=== PATIENT | female | born 1950 | race Caucasian/White ===

== ENCOUNTER 2022-03-25 10:33 | Observation (INO) ==
[2022-03-25 12:59] VITALS: BMI 25.8
[2022-03-25 13:19] LABS: BASOPHILS % (AUTO) 0.5 % (0.2-1.0); EOSINOPHILS % (AUTO) 0.6 % (0.9-2.9); HEMATOCRIT 42.7 % (36.0-47.0); HEMOGLOBIN 14.2 g/dL (12.0-16.0); LYMPHOCYTES # (AUTO) 1.2 X10^3/uL (1.3-2.9); MEAN CORPUSCULAR HEMOGLOBIN 29.1 pg (27.0-34.0); MEAN CORPUSCULAR HGB CONC 33.2 g/dL (33.0-35.0); MEAN CORPUSCULAR VOLUME 87.5 fL (80.0-100.0); MEAN PLATELET VOLUME 7.9 fL (7.4-11.0); MONOCYTES # (AUTO) 0.5 x10^3/uL (0.3-0.8); MONOCYTES % (AUTO) 7.9 % (0.0-13.0); NEUTROPHILS # (AUTO) 4.3 x10^3/uL (2.2-4.8); RED BLOOD COUNT 4.88 X10^6/uL (3.5-5.4); RED CELL DISTRIBUTION WIDTH 13.7 % (11.6-16.5); WHITE BLOOD COUNT 6.1 X10^3/uL (3.6-10.0)
[2022-03-25 13:27] LABS: BLOOD UREA NITROGEN 16 mg/dL (7-18); CALCIUM 9.8 mg/dL (8.5-10.1); CARBON DIOXIDE 27.5 mmol/L (21-32); CHLORIDE 107 mmol/L (98-107); CREATININE 0.77 mg/dL (0.55-1.02); SODIUM 145 mmol/L (136-145); eGFR NON BLACK RACES > 60 (>60)
--- NOTE | 2022-03-25 13:45 | DR.H&P ---
H&P History & Physical for Day of: H&P Date: 03/25/22 Chief Complaint Chief Complaint: Vomiting Allergies Allergies Allergy/AdvReac Type Severity Reaction Status Date / Time milk Allergy Mild Verified 03/25/22 13:00 History of Present Illness History of Present Illness: This is acute pleasant 71-year-old white female who presents to the office this morning complaining of acute onset of vomiting after eating steak and mashed potatoes yesterday at 3 PM. Feel like she has a piece of steak hung in a stricture in her esophagus. She reports an uncomfortable feeling in the mid to distal part of her esophagus at this time. She reports everything that she drinks or tries to eat afterwards. She denies coughing up blood or vomiting blood. She also denies nausea she immediately vomits up. She denies nausea, odynophagia and hematemesis. Her current problem has not gotten any better since his acute onset yesterday at 3 PM. I have called and discussed the Ms. Missy Loving with general surgeon, Dr. Lea. He plans on possible EGD later today. In the meantime I will check her labs and get her cleared for surgery and keep her n.p.o. at this time. Past Medical History Past Medical History: Dyslipidemia and GERD Past Surgical History Surgical History: Cholecystectomy Family History Family Medical History: Diabetes Mellitus, Cancer, [place], Coronary Artery Disease and Hypertension Social History Does patient currently use any type of tobacco product: No Have you used tobacco products in the last 12 months: No Type of Tobacco Use: None Does any household member use tobacco: No Alcohol Use: None Drug Use: None Medications Home Medications: milk Allergy (Mild, Verified 03/25/22 13:00) Labs Result Diagrams: 03/25/22 12:56 03/25/22 12:56 Labs: Laboratory WBC 6.1 X10^3/uL (3.6-10.0) 03/25/22 12:56 RBC 4.88 X10^6/uL (3.5-5.4) 03/25/22 12:56 Hgb 14.2 g/dL (12.0-16.0) 03/25/22 12:56 Hct 42.7 % (36.0-47.0) 03/25/22 12:56 MCV 87.5 fL (80.0-100.0) 03/25/22 12:56 MCH 29.1 pg (27.0-34.0) 03/25/22 12:56 MCHC 33.2 g/dL (33.0-35.0) 03/25/22 12:56 RDW 13.7 % (11.6-16.5) 03/25/22 12:56 Plt Count 244 X10^3/uL (150.0-450.0) 03/25/22 12:56 MPV 7.9 fL (7.4-11.0) 03/25/22 12:56 Neut % (Auto) 71.0 % (42.0-75.0) 03/25/22 12:56 Lymph % (Auto) 20.0 % (21.0-51.0) L 03/25/22 12:56 [place] % (Auto) 7.9 % (0.0-13.0) 03/25/22 12:56 Eos % (Auto) 0.6 % (0.9-2.9) L 03/25/22 12:56 Baso % (Auto) 0.5 % (0.2-1.0) 03/25/22 12:56 Neut # (Auto) 4.3 x10^3/uL (2.2-4.8) 03/25/22 12:56 Lymph # (Auto) 1.2 X10^3/uL (1.3-2.9) L 03/25/22 12:56 [place] # (Auto) 0.5 x10^3/uL (0.3-0.8) 03/25/22 12:56 Eos # (Auto) 0.0 x10^3/uL (0.0-0.2) 03/25/22 12:56 Baso # (Auto) 0.0 X10^3/uL (0.0-0.1) 03/25/22 12:56 Absolute Nucleated RBC 0.0 /100WBC 03/25/22 12:56 PT 13.7 SECONDS (11.8-14.3) 03/25/22 12:56 INR Target Range - 03/25/22 12:56 INR 1.08 (0.8-1.3) 03/25/22 12:56 Sodium 145 mmol/L (136-145) 03/25/22 12:56 Corrected Sodium TNP 03/25/22 12:56 Potassium 4.3 mmol/L (3.5-5.1) 03/25/22 12:56 Chloride 107 mmol/L (98-107) 03/25/22 12:56 Carbon Dioxide 27.5 mmol/L (21-32) 03/25/22 12:56 BUN 16 mg/dL (7-18) 03/25/22 12:56 Creatinine 0.77 mg/dL (0.55-1.02) 03/25/22 12:56 Est GFR (MDRD) Af Amer > 60 (>60) 03/25/22 12:56 Est GFR (MDRD) Non-Af > 60 (>60) 03/25/22 12:56 Glucose 96 mg/dL (65-99) 03/25/22 12:56 Calcium 9.8 mg/dL (8.5-10.1) 03/25/22 12:56 Review of Systems Constitutional: No Symptoms Reported Eyes: No Symptoms Reported ENT: No Symptoms Reported Respiratory: No Symptoms Reported Cardiovascular: No Symptoms Reported Gastrointestinal: Vomiting Genitourinary: No Symptoms Reported Musculoskeletal: No Symptoms Reported Skin: No Symptoms Reported Neurological: No Symptoms Reported Oriented: Normal, Time, Person and Place Eyes: Normal Ear: Normal Nose: Normal Throat: Normal Respiratory: Clear Throughout Cardiovascular: Normal : Normal Auscultation: Bowel Sounds: Normal Palpation: Normal Tenderness: Normal Skin: Normal Musculoskeletal: Normal Psychiatric: Normal Mood Description: Calm Affect: Normal Speech Pattern: Clear and Appropriate Assessment/Plan (1) Dysphagia: Qualifiers: Dysphagia type: esophageal phase Qualified Code(s): R13.19 - Other dysphagia Narrative Support Text: I suspect the patient has solid food occlusion of the esophagus most likely at a stricture. EGD later today per general surgery. Status: Acute Plan: The patient's CMP and CBC are back and within normal limits. I will go ahead and clear her for surgery since this is only an EGD. (2) GERD (gastroesophageal reflux disease): Status: Acute
[2022-03-25] MEDS ORDERED: DIPRIVAN VIAL 20 ML ONE (13:57)
[2022-03-25] MEDS ORDERED: NS 500 ML IV 500 ML IV ONE (13:59)
[2022-03-25] MEDS: NS 1/2 1,000 ML IV 1,000 ML IV SCH (14:31)
[2022-03-25] MEDS ORDERED: NS 1/2 1,000 ML IV 1,000 ML IV ONE ×2 (14:32→23:50)
--- NOTE | 2022-03-25 15:47 | RAD ---
HISTORYN/V/DIARRHEASTUDYCHEST, 1 VIEWCOMPARISONNone availableTECHNIQUEChest radiographic imaging, AP portable projection, 1 imageFINDINGSNo cardiomegaly.No focal airspace disease.No pleural effusion.No pneumothorax.No acute osseous abnormality.IMPRESSIONNo imaging findings of acute cardiopulmonary disease.Electronically signed by: Luis Slaazar (March 25, 2022 15:46:33)
[2022-03-25 21:15] LABS: ALANINE AMINOTRANSFERASE 29 Units/L (12-78); ALBUMIN 4.4 g/dL (3.4-5.0); ALKALINE PHOSPHATASE 91 Units/L (46-116); ASPARTATE AMINO TRANSFERASE 25 Units/L (15-37); TOTAL PROTEIN 7.9 g/dL (6.4-8.2)
[2022-03-26 02:29] LABS: BILIRUBIN,URINE NEGATIVE (NEGATIVE); BLOOD/HEMOGLOBIN,URINE 1+ (NEGATIVE); GLUCOSE, URINE NEGATIVE (NEGATIVE); KETONES,URINE NEGATIVE (NEGATIVE); LEUKOCYTE ESTERASE ,URINE 2+ (NEGATIVE); NITRITES,URINE POSITIVE (NEGATIVE); PROTEIN,URINE NEGATIVE (NEGATIVE); UROBILINOGEN,URINE NORMAL (NORMAL)
[2022-03-26 02:33] LABS: APPEARANCE,URINE CLEAR (CLEAR); BACTERIA,URINE 3+ /HPF (NEGATIVE); COLOR,URINE YELLOW (YELLOW); RBC,URINE 0-2 /HPF (0-3); SQUAMOUS EPITHELIAL CELL,UR FEW /HPF (NEGATIVE)
[2022-03-26] MEDS: NS 1/2 1,000 ML IV 1,000 ML IV SCH ×3 (05:44→09:04)
[2022-03-26 08:16] VITALS: BP 112/58
[2022-03-26] MEDS ORDERED: NS 1/2 1,000 ML IV 1,000 ML IV ONE (08:29)
[2022-03-26] MEDS ORDERED: PROTONIX INJ 40 MG VIAL IVP SCH (09:00)
== END 2022-03-26 11:00 | disposition home or self-care (01) ==
LOC: MED/SURG
PROVIDERS: ADMIT Family Medicine; ATTEND Family Medicine
DX: K21.9 Gastro-esophageal reflux disease without esophagitis; E78.2 Mixed hyperlipidemia; K22.2 Esophageal obstruction; R11.10 Vomiting, unspecified; R13.11 Dysphagia, oral phase

== ENCOUNTER 2022-10-20 08:20 | Inpatient (IN) ==
[2022-10-20] MEDS ORDERED: LR 1,000 ML IV 1,000 ML IV ONE ×2 (09:38→11:19)
[2022-10-20] MEDS ORDERED: ANCEF VIAL 1 GRAM ONE (09:38)
[2022-10-20] MEDS ORDERED: NS 100 ML IV 100 ML ONE (09:39)
[2022-10-20] MEDS ORDERED: BACTROBAN TOPICAL OINT ONE (10:03)
[2022-10-20] MEDS ORDERED: POLYMYXIN B SULFATE ONE (10:04)
[2022-10-20] MEDS ORDERED: QUELICIN (OR ANECTINE) ONE (10:08)
[2022-10-20] MEDS ORDERED: ZOFRAN INJ 4 MG VIAL ONE ×2 (10:08→21:31)
[2022-10-20] MEDS ORDERED: DIPRIVAN VIAL 20 ML ONE (10:08)
[2022-10-20] MEDS ORDERED: NEO-SYNEPHRINE INJ ONE (10:08)
[2022-10-20] MEDS ORDERED: PEPCID 20 MG VIAL ONE (10:08)
[2022-10-20] MEDS ORDERED: MAGNESIUM SULFATE 50% INJ VIAL ONE (10:08)
[2022-10-20] MEDS ORDERED: DILAUDID INJ ONE (10:11)
[2022-10-20] MEDS ORDERED: PRECEDEX INJ VIAL IVP ONE (10:15)
[2022-10-20] MEDS ORDERED: KETAMINE HCL ONE (10:15)
[2022-10-20] MEDS ORDERED: ZEMURON 50 MG VIAL ONE (10:15)
[2022-10-20] MEDS ORDERED: SUPRANE ONE (10:15)
[2022-10-20 10:18] VITALS: BMI 25.3
[2022-10-20] MEDS ORDERED: LEVAQUIN PREMIX IV 500 MG 500 MG/100 ML BAG IV ONE (10:40)
[2022-10-20] MEDS ORDERED: BRIDION ONE (11:50)
[2022-10-20] MEDS ORDERED: REGLAN INJ 10 MG VIAL IVP PRN (12:23)
[2022-10-20] MEDS ORDERED: ZOFRAN INJ 4 MG VIAL IVP PRN (12:23)
[2022-10-20] MEDS ORDERED: BENADRYL INJ 50 MG VIAL IVP PRN (12:23)
[2022-10-20] MEDS ORDERED: BARHEMSYS INJ IVP PRN (12:23)
[2022-10-20] MEDS: DILAUDID INJ IVP PRN ×3 (12:30→12:44)
[2022-10-20] MEDS: D5 1/2 NS 1,000 ML 1,000 ML IV SCH ×2 (14:00→21:19)
[2022-10-20] MEDS: ANCEF VIAL 1 GRAM IVP SCH ×2 (14:00→21:12)
[2022-10-20] MEDS ORDERED: NS IRRIGATION* 500 ML IR ONE (15:16)
[2022-10-20] MEDS: ZOFRAN INJ 4 MG VIAL IVP PRN (21:36)
[2022-10-21] MEDS: DILAUDID INJ IVP PRN ×2 (00:01→17:28)
[2022-10-21] MEDS ORDERED: REGLAN INJ 10 MG VIAL IVP ONE (00:12)
[2022-10-21] MEDS ORDERED: REGLAN INJ 10 MG VIAL ONE (00:13)
[2022-10-21] MEDS: ANCEF VIAL 1 GRAM IVP SCH ×2 (05:02→14:37)
[2022-10-21] MEDS: D5 1/2 NS 1,000 ML 1,000 ML IV SCH ×3 (05:02→20:35)
[2022-10-21] MEDS: ZOFRAN INJ 4 MG VIAL IVP PRN ×2 (05:07→17:25)
[2022-10-21 05:11] LABS: BASOPHILS % (AUTO) 0.2 % (0.2-1.0); HEMATOCRIT 35.2 % (36.0-47.0); LYMPHOCYTES # (AUTO) 0.7 X10^3/uL (1.3-2.9); LYMPHOCYTES % (AUTO) 7.3 % (21.0-51.0); MEAN CORPUSCULAR HEMOGLOBIN 29.2 pg (27.0-34.0); MEAN PLATELET VOLUME 7.6 fL (7.4-11.0); MONOCYTES # (AUTO) 0.6 x10^3/uL (0.3-0.8); MONOCYTES % (AUTO) 6.4 % (0.0-13.0); NEUTROPHILS # (AUTO) 8.7 x10^3/uL (2.2-4.8); NEUTROPHILS % (AUTO) 86.1 % (42.0-75.0); RED BLOOD COUNT 4.09 X10^6/uL (3.5-5.4); RED CELL DISTRIBUTION WIDTH 13.7 % (11.6-16.5); WHITE BLOOD COUNT 10.1 X10^3/uL (3.6-10.0)
[2022-10-21 05:26] LABS: ALANINE AMINOTRANSFERASE 26 Units/L (12-78); ALBUMIN 3.1 g/dL (3.4-5.0); ALKALINE PHOSPHATASE 78 Units/L (46-116); ASPARTATE AMINO TRANSFERASE 24 Units/L (15-37); BLOOD UREA NITROGEN 8 mg/dL (7-18); CALCIUM 8.3 mg/dL (8.5-10.1); CARBON DIOXIDE 29.6 mmol/L (21-32); CHLORIDE 102 mmol/L (98-107); COR NA(FOR HYPERGLY) 136 mmol/L (136-145); CREATININE 0.69 mg/dL (0.55-1.02); SODIUM 135 mmol/L (136-145); TOTAL PROTEIN 6.1 g/dL (6.4-8.2); eGFR NON BLACK RACES > 60 (>60)
[2022-10-21] MEDS ORDERED: PROTONIX INJ 40 MG VIAL IVP SCH (09:00)
[2022-10-21] MEDS: LOVENOX INJ 40 MG SYR SC SCH (09:44)
--- NOTE | 2022-10-21 10:17 | DR.PROGNOT ---
Hospital Progress Notes - Progress Note for Day of: Progress Note Date: 10/21/22 - Chief Complaint Chief Complaint: PO day 1. c/o incisional pain .. mild drainage in HERBER . afebrile .. stable VS . - Past Medical Family Social History Past Med/Fam/Surg Hx: No changes since H&P Allergies: Allergies milk Allergy (Mild, Verified 04/25/22 07:32) unknown pantoprazole [From Protonix] Adverse Reaction (Mild, Verified 04/25/22 07:32) head itching, rash on back of neck - Review Of Systems ROS: No change since H&P - Vital Signs Vital Signs: Temperature 98.0 F Pulse Rate [Bilateral Radial] 79 Pulse Rate 75 Respiratory Rate 20 Blood Pressure [Left Arm] 111/59 Blood Pressure 129/61 O2 Sat by Pulse Oximetry 97 - Physical Exam Oriented: Normal Eyes: Normal Ear: Normal Respiratory: Normal Cardiovascular: Normal : Normal GI:Auscultation: Decreased GI: Tenderness: Diffuse (soft aqbdomen .. BS hypoactive .) Mood Description: Calm Speech Pattern: Clear, Appropriate - Laboratory and Diagnostics Result Diagrams: 10/21/22 04:50 10/21/22 04:50 Labs: Laboratory WBC 10.1 X10^3/uL (3.6-10.0) H 10/21/22 04:50 RBC 4.09 X10^6/uL (3.5-5.4) 10/21/22 04:50 Hgb 12.0 g/dL (12.0-16.0) 10/21/22 04:50 Hct 35.2 % (36.0-47.0) L 10/21/22 04:50 MCV 86.0 fL (80.0-100.0) 10/21/22 04:50 MCH 29.2 pg (27.0-34.0) 10/21/22 04:50 MCHC 34.0 g/dL (33.0-35.0) 10/21/22 04:50 RDW 13.7 % (11.6-16.5) 10/21/22 04:50 Plt Count 216 X10^3/uL (150.0-450.0) 10/21/22 04:50 MPV 7.6 fL (7.4-11.0) 10/21/22 04:50 Neut % (Auto) 86.1 % (42.0-75.0) H 10/21/22 04:50 Lymph % (Auto) 7.3 % (21.0-51.0) L 10/21/22 04:50 Jenkins % (Auto) 6.4 % (0.0-13.0) 10/21/22 04:50 Eos % (Auto) 0.0 % (0.9-2.9) L 10/21/22 04:50 Baso % (Auto) 0.2 % (0.2-1.0) 10/21/22 04:50 Neut # (Auto) 8.7 x10^3/uL (2.2-4.8) H 10/21/22 04:50 Lymph # (Auto) 0.7 X10^3/uL (1.3-2.9) L 10/21/22 04:50 Jenkins # (Auto) 0.6 x10^3/uL (0.3-0.8) 10/21/22 04:50 Eos # (Auto) 0.0 x10^3/uL (0.0-0.2) 10/21/22 04:50 Baso # (Auto) 0.0 X10^3/uL (0.0-0.1) 10/21/22 04:50 Absolute Nucleated RBC 0.0 /100WBC 10/21/22 04:50 Sodium 135 mmol/L (136-145) L 10/21/22 04:50 Corrected Sodium 136 mmol/L (136-145) 10/21/22 04:50 Potassium 4.8 mmol/L (3.5-5.1) 10/21/22 04:50 Chloride 102 mmol/L (98-107) 10/21/22 04:50 Carbon Dioxide 29.6 mmol/L (21-32) 10/21/22 04:50 BUN 8 mg/dL (7-18) 10/21/22 04:50 Creatinine 0.69 mg/dL (0.55-1.02) 10/21/22 04:50 Est GFR (MDRD) Af Amer > 60 (>60) 10/21/22 04:50 Est GFR (MDRD) Non-Af > 60 (>60) 10/21/22 04:50 Glucose 162 mg/dL (65-99) H 10/21/22 04:50 Calcium 8.3 mg/dL (8.5-10.1) L 10/21/22 04:50 Corrected Calcium 9.0 mg/dL (8.5-10.1) 10/21/22 04:50 Total Bilirubin 0.60 mg/dL (0.2-1.0) 10/21/22 04:50 AST 24 Units/L (15-37) 10/21/22 04:50 ALT 26 Units/L (12-78) 10/21/22 04:50 Alkaline Phosphatase 78 Units/L (46-116) 10/21/22 04:50 Total Protein 6.1 g/dL (6.4-8.2) L 10/21/22 04:50 Albumin 3.1 g/dL (3.4-5.0) L 10/21/22 04:50 Globulin 3.0 g/dL (2.5-4.5) 10/21/22 04:50 Albumin/Globulin Ratio 1.0 Ratio (1.1-2.1) L 10/21/22 04:50 Tissue Pathology To follow 10/20/22 11:12 - Assessment and Plan 3: s/p Rt colectomy day 1 . to d/c NGT , OOB with Marissa vivar/Gurinder aceves . may have water .. same PO care ..
--- NOTE | 2022-10-21 14:30 | DR.CONSULT ---
CONSULT Consultation for Day of: Date: 10/21/22 Chief Complaint Chief Complaint: Medical management Allergies Allergies Allergy/AdvReac Type Severity Reaction Status Date / Time milk Allergy Mild unknown Verified 04/25/22 07:32 pantoprazole [From Protonix] AdvReac Mild head Verified 04/25/22 07:32 itching, rash on back of neck History of Present Illness History of Present Illness: This is a pleasant 72-year-old white female well- known to me. She has a history of colon cancer with recent diagnosis, hypertension and diabetes mellitus type 2. She underwent went a colon resection yesterday per general surgery and they have consulted me for medical management of her chronic medical problems. Currently she is doing well has no new compl aints other than some pain which she reports is better this morning compared to last night. Past Medical History Past Medical History: Dyslipidemia and GERD Past Surgical History Surgical History: Cholecystectomy Family History Family Medical History: Diabetes Mellitus, Cancer and Hypertension Social History Alcohol Use: None Drug Use: None Medications Home Medications: milk Allergy (Mild, Verified 04/25/22 07:32) unknown pantoprazole [From Protonix] Adverse Reaction (Mild, Verified 04/25/22 07:32) head itching, rash on back of neck CONTINUE taking the following medications losartan 25 mg tablet 1 tab PO QDAY 10/20/22 [History] rabeprazole 20 mg tablet,delayed release 1 tab PO QDAY 10/20/22 [History] Review of Systems Constitutional: No Symptoms Reported Eyes: No Symptoms Reported ENT: No Symptoms Reported Respiratory: No Symptoms Reported Cardiovascular: No Symptoms Reported Gastrointestinal: Abdominal Pain Genitourinary: No Symptoms Reported Musculoskeletal: No Symptoms Reported Skin: No Symptoms Reported Neurological: No Symptoms Reported Physical Exam Vital Signs: Temperature 98.9 F Pulse Rate [Bilateral Radial] 76 Pulse Rate 75 Respiratory Rate 20 Blood Pressure [Left Arm] 126/60 Blood Pressure 129/61 O2 Sat by Pulse Oximetry 96 Oriented: Normal, Time, Person and Place Eyes: Normal Ear: Normal Nose: Normal Throat: Normal Respiratory: Clear Throughout Cardiovascular: Normal Auscultation: Bowel Sounds: Absent Tenderness: Diffuse Skin: Normal Musculoskeletal: Normal Psychiatric: Normal Mood Description: Calm Affect: Normal Speech Pattern: Clear and Appropriate Plan (1) Diabetes mellitus type 2 in nonobese: Status: Acute Plan: Covered patient with sliding scale regular insulin per protocol. (2) Hypertension: Status: Acute Plan: Monitor blood pressure and I will treat accordingly with IV anti hypertensives as long as she is NPO. (3) Colon cancer: Status: Acute Narrative Support Text: Patient is postop day 1 for colon resection secondary to colon carcinoma. Plan: Treatment per general surgery.
[2022-10-21] MEDS: PEPCID 20 MG VIAL 20 MG in NS 50 ML IV 50 ML IV SCH ×2 (16:38→20:36)
[2022-10-21] MEDS ORDERED: TYLENOL 500 MG TAB EXTRA STRENGTH PO PRN (16:57)
[2022-10-21] MEDS ORDERED: TYLENOL 325 MG TAB PO PRN (17:06)
[2022-10-22] MEDS: D5 1/2 NS 1,000 ML 1,000 ML IV SCH ×3 (04:50→19:56)
[2022-10-22 05:15] LABS: BASOPHILS % (AUTO) 0.3 % (0.2-1.0); EOSINOPHILS % (AUTO) 0.3 % (0.9-2.9); HEMATOCRIT 33.7 % (36.0-47.0); HEMOGLOBIN 11.5 g/dL (12.0-16.0); LYMPHOCYTES # (AUTO) 0.8 X10^3/uL (1.3-2.9); LYMPHOCYTES % (AUTO) 10.2 % (21.0-51.0); MEAN CORPUSCULAR HEMOGLOBIN 29.5 pg (27.0-34.0); MEAN CORPUSCULAR HGB CONC 34.3 g/dL (33.0-35.0); MEAN CORPUSCULAR VOLUME 86.1 fL (80.0-100.0); MEAN PLATELET VOLUME 7.5 fL (7.4-11.0); MONOCYTES # (AUTO) 0.6 x10^3/uL (0.3-0.8); MONOCYTES % (AUTO) 8.2 % (0.0-13.0); NEUTROPHILS # (AUTO) 6.1 x10^3/uL (2.2-4.8); RED BLOOD COUNT 3.91 X10^6/uL (3.5-5.4); RED CELL DISTRIBUTION WIDTH 13.7 % (11.6-16.5); WHITE BLOOD COUNT 7.5 X10^3/uL (3.6-10.0)
[2022-10-22 05:23] LABS: ALANINE AMINOTRANSFERASE 20 Units/L (12-78); ALBUMIN 2.8 g/dL (3.4-5.0); ALKALINE PHOSPHATASE 71 Units/L (46-116); ASPARTATE AMINO TRANSFERASE 23 Units/L (15-37); BLOOD UREA NITROGEN 5 mg/dL (7-18); CALCIUM 8.1 mg/dL (8.5-10.1); CARBON DIOXIDE 27.6 mmol/L (21-32); CHLORIDE 103 mmol/L (98-107); COR CA(FOR HYPOALB) 9.1 mg/dL (8.5-10.1); CREATININE 0.75 mg/dL (0.55-1.02); SODIUM 137 mmol/L (136-145); TOTAL PROTEIN 5.7 g/dL (6.4-8.2); eGFR NON BLACK RACES > 60 (>60)
[2022-10-22] MEDS: PEPCID 20 MG VIAL 20 MG in NS 50 ML IV 50 ML IV SCH ×2 (09:15→20:21)
[2022-10-22] MEDS: LOVENOX INJ 40 MG SYR SC SCH (09:15)
--- NOTE | 2022-10-22 16:05 | PCM.PROG ---
Progress Note Progress Note for Day of Date of Exam: 10/22/22 Subjective Subjective: Patient reports he is feeling better this morning. She is not taking anything by mouth at this time her abdominal pain is improved overall though. She is not passing any when or having any bowel movements at this time either. Past Medical Family Social History Past Med/Fam/Surg Hx: No changes since H&P Allergies: Allergies milk Allergy (Mild, Verified 04/25/22 07:32) unknown pantoprazole [From Protonix] Adverse Reaction (Mild, Verified 04/25/22 07:32) head itching, rash on back of neck Review of Systems ROS: No change since H&P Vital Signs and I&O's Vital Signs: Temperature 99.3 F Pulse Rate [Bilateral Radial] 89 Pulse Rate 75 Respiratory Rate 20 Blood Pressure [Left Arm] 146/68 Blood Pressure 129/61 O2 Sat by Pulse Oximetry 93 Intake and Output: Intake & Output 10/20/22 10/21/22 10/22/22 10/23/22 11:59 11:59 11:59 11:59 Intake Total 2200 / 2200 2050 / 2050 3395 / 3395 Output Total 1250 / 1250 1120 / 1120 655 / 655 Balance 950 / 950 930 / 930 2740 / 2740 Physical Exam Oriented: Normal, Time, Person and Place Eyes: Normal Ear: Normal Nose: Normal Throat: Normal Respiratory: Normal Cardiovascular: Normal : Normal Auscultation: Bowel Sounds: Absent Tenderness: Diffuse Skin: Normal Musculoskeletal: Normal Psychiatric: Normal Mood Description: Calm Affect: Normal Speech Pattern: Clear and Appropriate Laboratory and Diagnostics Result Diagrams: 10/22/22 04:54 10/22/22 04:54 Labs: Laboratory WBC 7.5 X10^3/uL (3.6-10.0) 10/22/22 04:54 RBC 3.91 X10^6/uL (3.5-5.4) 10/22/22 04:54 Hgb 11.5 g/dL (12.0-16.0) L 10/22/22 04:54 Hct 33.7 % (36.0-47.0) L 10/22/22 04:54 MCV 86.1 fL (80.0-100.0) 10/22/22 04:54 MCH 29.5 pg (27.0-34.0) 10/22/22 04:54 MCHC 34.3 g/dL (33.0-35.0) 10/22/22 04:54 RDW 13.7 % (11.6-16.5) 10/22/22 04:54 Plt Count 198 X10^3/uL (150.0-450.0) 10/22/22 04:54 MPV 7.5 fL (7.4-11.0) 10/22/22 04:54 Neut % (Auto) 81.0 % (42.0-75.0) H 10/22/22 04:54 Lymph % (Auto) 10.2 % (21.0-51.0) L 10/22/22 04:54 [place] % (Auto) 8.2 % (0.0-13.0) 10/22/22 04:54 Eos % (Auto) 0.3 % (0.9-2.9) L 10/22/22 04:54 Baso % (Auto) 0.3 % (0.2-1.0) 10/22/22 04:54 Neut # (Auto) 6.1 x10^3/uL (2.2-4.8) H 10/22/22 04:54 Lymph # (Auto) 0.8 X10^3/uL (1.3-2.9) L 10/22/22 04:54 [place] # (Auto) 0.6 x10^3/uL (0.3-0.8) 10/22/22 04:54 Eos # (Auto) 0.0 x10^3/uL (0.0-0.2) 10/22/22 04:54 Baso # (Auto) 0.0 X10^3/uL (0.0-0.1) 10/22/22 04:54 Absolute Nucleated RBC 0.0 /100WBC 10/22/22 04:54 Sodium 137 mmol/L (136-145) 10/22/22 04:54 Corrected Sodium TNP 10/22/22 04:54 Potassium 3.6 mmol/L (3.5-5.1) 10/22/22 04:54 Chloride 103 mmol/L (98-107) 10/22/22 04:54 Carbon Dioxide 27.6 mmol/L (21-32) 10/22/22 04:54 BUN 5 mg/dL (7-18) L 10/22/22 04:54 Creatinine 0.75 mg/dL (0.55-1.02) 10/22/22 04:54 Est GFR (MDRD) Af Amer > 60 (>60) 10/22/22 04:54 Est GFR (MDRD) Non-Af > 60 (>60) 10/22/22 04:54 Glucose 110 mg/dL (65-99) H 10/22/22 04:54 Calcium 8.1 mg/dL (8.5-10.1) L 10/22/22 04:54 Corrected Calcium 9.1 mg/dL (8.5-10.1) 10/22/22 04:54 Total Bilirubin 0.90 mg/dL (0.2-1.0) 10/22/22 04:54 AST 23 Units/L (15-37) 10/22/22 04:54 ALT 20 Units/L (12-78) 10/22/22 04:54 Alkaline Phosphatase 71 Units/L (46-116) 10/22/22 04:54 Total Protein 5.7 g/dL (6.4-8.2) L 10/22/22 04:54 Albumin 2.8 g/dL (3.4-5.0) L 10/22/22 04:54 Globulin 2.9 g/dL (2.5-4.5) 10/22/22 04:54 Albumin/Globulin Ratio 1.0 Ratio (1.1-2.1) L 10/22/22 04:54 Tissue Pathology To follow 10/20/22 11:12 Plan (1) Diabetes mellitus type 2 in nonobese: Status: Acute Plan: Slight scale regular insulin per protocol. (2) Hypertension: Status: Acute Plan: We will give intravenous antihypertensive if needed for uncontrolled hypertension. (3) Colon cancer: Status: Acute Plan: Follow-up pathology results.
[2022-10-23] MEDS: D5 1/2 NS 1,000 ML 1,000 ML IV SCH ×2 (05:10→08:26)
[2022-10-23 05:20] LABS: BASOPHILS % (AUTO) 0.4 % (0.2-1.0); EOSINOPHILS # (AUTO) 0.1 x10^3/uL (0.0-0.2); EOSINOPHILS % (AUTO) 1.8 % (0.9-2.9); HEMATOCRIT 32.1 % (36.0-47.0); HEMOGLOBIN 11.1 g/dL (12.0-16.0); LYMPHOCYTES % (AUTO) 15.9 % (21.0-51.0); MEAN CORPUSCULAR HEMOGLOBIN 29.4 pg (27.0-34.0); MEAN CORPUSCULAR HGB CONC 34.5 g/dL (33.0-35.0); MEAN CORPUSCULAR VOLUME 85.3 fL (80.0-100.0); MEAN PLATELET VOLUME 7.8 fL (7.4-11.0); MONOCYTES # (AUTO) 0.6 x10^3/uL (0.3-0.8); MONOCYTES % (AUTO) 9.5 % (0.0-13.0); NEUTROPHILS # (AUTO) 4.7 x10^3/uL (2.2-4.8); NEUTROPHILS % (AUTO) 72.4 % (42.0-75.0); RED BLOOD COUNT 3.76 X10^6/uL (3.5-5.4); RED CELL DISTRIBUTION WIDTH 13.8 % (11.6-16.5); WHITE BLOOD COUNT 6.4 X10^3/uL (3.6-10.0)
[2022-10-23 05:32] LABS: ALANINE AMINOTRANSFERASE 17 Units/L (12-78); ALBUMIN 2.6 g/dL (3.4-5.0); ALKALINE PHOSPHATASE 69 Units/L (46-116); ASPARTATE AMINO TRANSFERASE 21 Units/L (15-37); BLOOD UREA NITROGEN 5 mg/dL (7-18); CALCIUM 8.4 mg/dL (8.5-10.1); CARBON DIOXIDE 32.7 mmol/L (21-32); CHLORIDE 105 mmol/L (98-107); COR CA(FOR HYPOALB) 9.5 mg/dL (8.5-10.1); CREATININE 0.64 mg/dL (0.55-1.02); SODIUM 139 mmol/L (136-145); TOTAL PROTEIN 5.7 g/dL (6.4-8.2); eGFR NON BLACK RACES > 60 (>60)
--- NOTE | 2022-10-23 08:19 | PCM.PROG ---
Progress Note Progress Note for Day of Date of Exam: 10/23/22 Subjective Subjective: Patient reports she is feeling better this morning, she is on postop day 3. It is reported by the charge nurse that she developed bowel sounds last night. She has been started on a clear liquid diet as tolerated and finding this time. She has not passed any flatus nor had a bowel movement but she reports that her belly has been gurgling. She has no pain in her abdomen at this time. Blood pressure and heart rate have remained stable as well as her glucose level. Hemoglobin stable at 11.1. Will resume her losartan this morning. Past Medical Family Social History Past Med/Fam/Surg Hx: No changes since H&P Allergies: Allergies milk Allergy (Mild, Verified 04/25/22 07:32) unknown pantoprazole [From Protonix] Adverse Reaction (Mild, Verified 04/25/22 07:32) head itching, rash on back of neck Review of Systems ROS: No change since H&P Vital Signs and I&O's Vital Signs: Temperature 98.5 F Pulse Rate [Bilateral Radial] 78 Pulse Rate 75 Respiratory Rate 20 Blood Pressure [Left Arm] 133/65 Blood Pressure 129/61 O2 Sat by Pulse Oximetry 93 Intake and Output: Intake & Output 10/20/22 10/21/22 10/22/22 10/23/22 11:59 11:59 11:59 11:59 Intake Total 2200 / 2200 2050 / 2050 3395 / 3395 2166 / 2166 Output Total 1250 / 1250 1120 / 1120 655 / 655 65 / 65 Balance 950 / 950 930 / 930 2740 / 2740 2101 / 2101 Physical Exam Oriented: Normal, Time, Person and Place Eyes: Normal Ear: Normal Nose: Normal Throat: Normal Respiratory: Normal Cardiovascular: Normal : Normal Auscultation: Bowel Sounds: Absent Tenderness: Diffuse Skin: Normal Musculoskeletal: Normal Psychiatric: Normal Mood Description: Calm Affect: Normal Speech Pattern: Clear and Appropriate Laboratory and Diagnostics Result Diagrams: 10/23/22 04:33 10/23/22 04:33 Labs: Laboratory WBC 6.4 X10^3/uL (3.6-10.0) 10/23/22 04:33 RBC 3.76 X10^6/uL (3.5-5.4) 10/23/22 04:33 Hgb 11.1 g/dL (12.0-16.0) L 10/23/22 04:33 Hct 32.1 % (36.0-47.0) L 10/23/22 04:33 MCV 85.3 fL (80.0-100.0) 10/23/22 04:33 MCH 29.4 pg (27.0-34.0) 10/23/22 04:33 MCHC 34.5 g/dL (33.0-35.0) 10/23/22 04:33 RDW 13.8 % (11.6-16.5) 10/23/22 04:33 Plt Count 197 X10^3/uL (150.0-450.0) 10/23/22 04:33 MPV 7.8 fL (7.4-11.0) 10/23/22 04:33 Neut % (Auto) 72.4 % (42.0-75.0) 10/23/22 04:33 Lymph % (Auto) 15.9 % (21.0-51.0) L 10/23/22 04:33 Bartholomew % (Auto) 9.5 % (0.0-13.0) 10/23/22 04:33 Eos % (Auto) 1.8 % (0.9-2.9) 10/23/22 04:33 Baso % (Auto) 0.4 % (0.2-1.0) 10/23/22 04:33 Neut # (Auto) 4.7 x10^3/uL (2.2-4.8) 10/23/22 04:33 Lymph # (Auto) 1.0 X10^3/uL (1.3-2.9) L 10/23/22 04:33 Bartholomew # (Auto) 0.6 x10^3/uL (0.3-0.8) 10/23/22 04:33 Eos # (Auto) 0.1 x10^3/uL (0.0-0.2) 10/23/22 04:33 Baso # (Auto) 0.0 X10^3/uL (0.0-0.1) 10/23/22 04:33 Absolute Nucleated RBC 0.0 /100WBC 10/23/22 04:33 Sodium 139 mmol/L (136-145) 10/23/22 04:33 Corrected Sodium TNP 10/23/22 04:33 Potassium 4.1 mmol/L (3.5-5.1) 10/23/22 04:33 Chloride 105 mmol/L (98-107) 10/23/22 04:33 Carbon Dioxide 32.7 mmol/L (21-32) H 10/23/22 04:33 BUN 5 mg/dL (7-18) L 10/23/22 04:33 Creatinine 0.64 mg/dL (0.55-1.02) 10/23/22 04:33 Est GFR (MDRD) Af Amer > 60 (>60) 10/23/22 04:33 Est GFR (MDRD) Non-Af > 60 (>60) 10/23/22 04:33 Glucose 109 mg/dL (65-99) H 10/23/22 04:33 Calcium 8.4 mg/dL (8.5-10.1) L 10/23/22 04:33 Corrected Calcium 9.5 mg/dL (8.5-10.1) 10/23/22 04:33 Total Bilirubin 1.20 mg/dL (0.2-1.0) H 10/23/22 04:33 AST 21 Units/L (15-37) 10/23/22 04:33 ALT 17 Units/L (12-78) 10/23/22 04:33 Alkaline Phosphatase 69 Units/L (46-116) 10/23/22 04:33 Total Protein 5.7 g/dL (6.4-8.2) L 10/23/22 04:33 Albumin 2.6 g/dL (3.4-5.0) L 10/23/22 04:33 Globulin 3.1 g/dL (2.5-4.5) 10/23/22 04:33 Albumin/Globulin Ratio 0.8 Ratio (1.1-2.1) L 10/23/22 04:33 Tissue Pathology To follow 10/20/22 11:12 Plan (1) Diabetes mellitus type 2 in nonobese: Status: Acute Plan: Slight scale regular insulin per protocol. (2) Hypertension: Status: Acute Plan: We will give intravenous antihypertensive if needed for uncontrolled hypertension. (3) Colon cancer: Status: Acute Plan: Follow-up pathology results.
[2022-10-23 08:26] VITALS: BP 152/70
[2022-10-23] MEDS: PEPCID 20 MG VIAL 20 MG in NS 50 ML IV 50 ML IV SCH (08:34)
[2022-10-23] MEDS: LOVENOX INJ 40 MG SYR SC SCH (08:40)
[2022-10-23] MEDS ORDERED: COZAAR PO SCH (09:00)
== END 2022-10-23 10:40 | disposition home or self-care (01) | DRG 331 ==
LOC: MED/SURG 08:20
PROVIDERS: ADMIT Surgery; ATTEND Surgery
DX: K66.0 Peritoneal adhesions (postprocedural) (postinfection); K21.9 Gastro-esophageal reflux disease without esophagitis; E11.65 Type 2 diabetes mellitus with hyperglycemia; E78.2 Mixed hyperlipidemia; I10 Essential (primary) hypertension; C18.2 Malignant neoplasm of ascending colon

== ENCOUNTER 2024-02-19 10:22 | Observation (INO) ==
[2024-02-19] MEDS: NOZIN NASAL SANITIZER TP ONE (10:50)
--- NOTE | 2024-02-19 11:03 | RAD ---
EXAM: CHEST, 1 VIEW HISTORY: PRE OP SHOULDER; COMPARISON: Prior study or studies were utilized for comparison during interpretation with the most relevant michelle ed 03/25/2022 TECHNIQUE: CHEST, 1 VIEW FINDINGS: Chest: Lines and tubes: None Mediastinum: Cardiac and mediastinal shadow is within normal limits for size and contour. Pulmonary vessels: No pulmonary vascular congestion. Lung bhatia: No suspicious airspace opacity. Pleura: No effusion. No pneumothorax. Bones and soft tissues: There is a right proximal humerus fracture. The humeral head projects below the glenoid which can be seen with dislocation. IMPRESSION: 1. Possible right shoulder fracture dislocation 2. No acute cardiopulmonary abnormality THIS IS AN ELECTRONICALLY VERIFIED FINAL REPORT 02/19/2024 10:59 AM - Electronically signed by Jerrod Biggs MD
[2024-02-19 11:22] VITALS: BMI 22.6
[2024-02-19] MEDS: LR 1,000 ML IV 1,000 ML IV ONE ×2 (11:30→15:18)
[2024-02-19] MEDS: VANCOMYCIN IV *PREMIX 1 G/200 ML BAG 1 G/200 ML PIGGYBACK IV ONE (11:35)
[2024-02-19] MEDS: FENTANYL VIAL INJ 250 mcg ONE (11:48)
[2024-02-19] MEDS: NAROPIN 0.75% EPI ONE (11:48)
[2024-02-19] MEDS: VANCOMYCIN HCL ONE (12:11)
[2024-02-19] MEDS: MARCAINE/EPINEPHRINE ONE (12:11)
[2024-02-19] MEDS: BETADINE SOLN ONE (12:13)
[2024-02-19] MEDS ORDERED: TRANEXAMIC ACID 1,000 MG in NS 100 ML IV 100 ML IV SCH (12:15)
[2024-02-19] MEDS: TRANEXAMIC ACID IV ONE (12:30)
[2024-02-19] MEDS: NS 100 ML IV 100 ML ONE ×2 (12:30→12:45)
[2024-02-19] MEDS: ROCEPHIN VIAL 2 GRAMS ONE (12:45)
[2024-02-19] MEDS: QUELICIN (OR ANECTINE) ONE (12:55)
[2024-02-19] MEDS: ZYNRELEF 200-6 MG/7 ML VIAL ER SOLN IL ONE (12:55)
[2024-02-19] MEDS: ZEMURON 100 MG VIAL ONE (12:55)
[2024-02-19] MEDS ORDERED: SUPRANE ONE (12:55)
[2024-02-19] MEDS: HYDROGEN PEROXIDE 3% ONE (12:55)
[2024-02-19] MEDS: VERSED ONE (12:55)
[2024-02-19] MEDS: DIPRIVAN VIAL 20 ML ONE (12:55)
[2024-02-19] MEDS: EPHEDRINE SULFATE INJ ONE (13:36)
[2024-02-19] MEDS ORDERED: NS IRRIGATION* 1,000 ML ONE (14:45)
[2024-02-19] MEDS: PRECEDEX INJ VIAL ONE (15:08)
[2024-02-19] MEDS: SUPRANE ONE (16:00)
[2024-02-19] MEDS ORDERED: ZOFRAN INJ 4 MG VIAL IVP PRN (16:08)
[2024-02-19] MEDS ORDERED: DILAUDID INJ IVP PRN (16:08)
[2024-02-19] MEDS ORDERED: REGLAN INJ 10 MG VIAL IVP PRN (16:08)
[2024-02-19] MEDS ORDERED: BENADRYL INJ 50 MG VIAL IVP PRN (16:08)
[2024-02-19] MEDS: BRIDION ONE (16:12)
[2024-02-19] MEDS: MARCAINE 0.25% INJ ONE (16:36)
[2024-02-19] MEDS ORDERED: ZOFRAN ODT PO PRN (17:12)
--- NOTE | 2024-02-19 17:15 | DR.OPNOTE ---
OP NOTE Pre-Op Diagnosis: Right proximal humerus fracture Post-Op Diagnosis: Same Procedure Date Date Of Procedure: 02/19/24 Procedure: Right Reverse Shoulder Arthroplasty Type of Anesthesia: General Anesthetic w/ETT Findings: Displaced and comminuted proximal humerus fracture with head splint component Specimen/Pathology: None EBL: 300 cc Drains/Tubes Placed: None Hardware: See Operative note Cultures: None Complications:: None Needle/Sponge Count:: Correct Disposition/Condition: Pt. tolerated procedure without difficulty. Extubated in the OR and taken to PACU in stable condition.
[2024-02-19] MEDS: BARHEMSYS INJ IVP PRN (17:21)
[2024-02-19] MEDS: NS 1,000 ML IV 1,000 ML IV SCH (18:51)
[2024-02-19] MEDS: COLACE CAP 100 MG PO SCH (21:30)
[2024-02-20] MEDS: TYLENOL 500 MG TAB EXTRA STRENGTH PO PRN (01:06)
[2024-02-20] MEDS: ROXICODONE TAB 5 MG PO PRN (03:32)
[2024-02-20 04:46] VITALS: RESP 18
--- NOTE | 2024-02-20 07:02 | RAD ---
EXAM:Right shoulder three viewsHISTORY:PostopCOMPARISON:02/11/2024 FINDINGS:3 frontal views right shoulder; the usual orthogonal view is not available.Reverse shoulder prosthesis components are anatomically related without evidence for displacement or periprosthetic fracture.IMPRESSION:No postoperative abnormality demonstrated; interval right TSA.THIS IS AN ELECTRONICALLY VERIFIED FINAL REPORT02/20/2024 6:59 AM - Electronically signed by Dick Briggs MD
[2024-02-20] MEDS: ASPIRIN 81 MG CHEWTAB PO SCH (08:44)
[2024-02-20] MEDS: ZOFRAN TAB 4 MG ONE (10:23)
[2024-02-20 12:00] VITALS: BP 133/59; PULSE 100; O2SAT 95
[2024-02-20 14:08] VITALS: TEMP 100.3
== END 2024-02-20 14:30 | disposition home or self-care (01) ==
LOC: MED/SURG 10:22 → SURG1 10:22
PROVIDERS: ADMIT Orthopaedic Surgery; ATTEND Orthopaedic Surgery